=== PATIENT | male | born 1985 | race Caucasian/White ===

== ENCOUNTER 2023-08-23 08:33 | Emergency (ER) | payer BC ==
[2023-08-23 08:54] LABS: Hematocrit 44.2 % (39.6-49.0); Lymphocytes % 34.8 % (15.3-44.8); MCV 91.4 fL (80-100); MPV 7.2 fL (7.6-11.3); Platelets 247 thou/uL (152-406); RBC Red Blood Cell Count 4.83 M/uL (4.33-5.43)
[2023-08-23] MEDS ORDERED: METOCLOPRAMIDE 10 MG/2mL INJ ONE (08:57)
[2023-08-23] MEDS ORDERED: DIPHENHYDRAMINE 50 MG/ML VIAL ONE (08:57)
[2023-08-23] MEDS ORDERED: NA CHLORIDE 0.9% 1,000 ML ONE (08:57)
[2023-08-23] MEDS ORDERED: NA CHLORIDE 0.9% 50 ML ONE (08:58)
[2023-08-23 09:12] LABS: Potassium 4.1 mEq/L (3.5-5.1); Troponin High Sensitivity 5.3 pg/mL (<58.9)
--- NOTE | 2023-08-23 09:47 | RAD REPORT ---
EXAM DESCRIPTION: RAD - Chest Single View - 08/23/2023 9:41 am CLINICAL HISTORY: CHEST PAIN Chest pain. COMPARISON: No comparisons FINDINGS: Portable technique limits examination quality. The lungs are grossly clear. The heart is normal in size. No displaced fractures. IMPRESSION: No acute intrathoracic process suspected.
--- NOTE | 2023-08-23 10:01 | EDPHYS ---
Physician Documentation [facility] Name: Jatin Patrick Age: 38 yrs Sex: Male : 1985 Arrival Date: 08/23/2023 Time: 08:33 Bed 4 Private MD: ED Physician Lior Caceres HPI: 08/23 08:41 This 38 yrs old Male presents to ER via EMS with complaints of dizziness. ec2 08:41 Patient arrives today due to concern for dizziness. Patient reports that he woke up ec2 this morning and suddenly felt very dizzy to the point where he felt lightheaded like he was in a pass out. States that he tried to get out of bed however positional changes in bed worsen his symptoms. Patient reports no previous similar symptoms. Patient reports no medical problems, denies any previous cardiac disease. Patient reports that he felt some palpitations during this time as well. Patient reports some associated nausea with this episode. Patient denies any vomiting. Patient reports no head traumas or injuries. Patient has not taken any medications prior to arrival.. Historical: - Allergies: 08:39 No Known Allergies; rs5 - PMHx: 08:39 None; rs5 - PSHx: 08:39 None; rs5 - Immunization history:: Adult Immunizations unknown. - Social history:: Smoking status: unknown. ROS: 08:41 Constitutional: dizziness ec2 Exam: 08:41 Constitutional: PHYSICAL EXAMINATION: GENERAL: No acute distress HEENT: Extraocular ec2 motions intact CV: Regular rate LUNGS: No respiratory distress ABDOMEN: Nondistended SKIN: No rash NEUROLOGIC: Cranial nerves II through XII intact, strength intact all 4 extremities, appropriate cerebellar function, negative HINTS exam. Vital Signs: 08:37 BP 122 / 80; Pulse 78; Resp 19; Temp 97.9; Pulse Ox 99% on R/A; rs5 09:00 BP 130 / 82; Pulse 74; Resp 17; Temp 98(O); Pulse Ox 99% on R/A; rs5 10:05 BP 125 / 81; Pulse 74; Resp 18; Pulse Ox 99% on R/A; rs5 MDM: 08:35 Patient medically screened. ec2 08:41 Data reviewed: vital signs. ec2 08:43 ED course: Patient arrives today for concern for significant dizziness. Examination ec2 markable. Nontoxic dividual was in no acute distress with reassuring neurologic exam. Will obtain lab work, EKG, chest x-ray as well as treat the patient symptoms with crystalloid, Reglan and Benadryl. Currently presenting process which is peripheral vertigo, lower suspicion for central vertigo, accordingly will defer any CT imaging of the head at this time. Additionally patient was low risk factors to indicate intracranial process such as stroke. We will also evaluate for electrolyte disturbances as well as arrhythmia.. 08:51 ED course: EKG independently reviewed and interpreted by me, shows normal sinus rhythm, ec2 rate 54, no acute ST segment elevations, no concern intervals.. 09:29 ED course: Metabolic profile is reassuring. CBC without leukocytosis or evidence of ec2 anemia. Troponin is within normal ranges. . 09:30 ED course: Chest x-ray independently reviewed and interpreted by me, shows no acute ec2 intrathoracic process.. 09:59 ED course: On reassessment patient reports marked improvement in his symptoms, I ec2 reexamined the patient, he remains with an intact neurologic exam and is now able to sustain positional changes with no recurrence of symptoms. Will discharge home with diagnosis of vertigo, prescribe the patient meclizine. Return precautions given.. 08/23 08:40 Order name: Basic Metabolic Panel; Complete Time: : ec2 08/23 08:40 Order name: CBC with Diff; Complete Time: : ec2 08/23 08:40 Order name: Troponin HS; Complete Time: : ec2 08/23 08:40 Order name: XRAY Chest (1 view); Complete Time: :59 ec2 08/23 08:40 Order name: EKG; Complete Time: 08: ec2 08/23 08:40 Order name: Cardiac monitoring; Complete Time: : ec2 08/23 08:40 Order name: EKG - Nurse/Tech; Complete Time: ec2 08/23 08:40 Order name: IV Saline Lock; Complete Time: ec2 08/23 08:40 Order name: Labs collected and sent; Complete Time: : ec2 08/23 08:40 Order name: O2 Per Protocol; Complete Time: ec2 08/23 08:40 Order name: O2 Sat Monitoring; Complete Time: 08:51 ec2 Administered Medications: 08:43 Drug: NS 0.9% IV 1000 ml IV at 1 bolus Per protocol; 1000 mL bolus Route: IV; Rate: 1 db bolus; Site: left antecubital; 09:00 Follow up: Response: No adverse reaction rs5 08:43 Drug: diphenhydrAMINE IVP 50 mg IVP once Route: IVP; Site: left antecubital; db 09:00 Follow up: Response: No adverse reaction rs5 08:45 Drug: metoCLOPramide IVP 10 mg IVP once; over 1 to 2 minutes Route: IVP; Site: left db antecubital; 09:00 Follow up: Response: No adverse reaction; Nausea is decreased rs5 Disposition Summary: 08/23/23 10:00 Discharge Ordered Notes: Location: Home ec2 Condition: Stable ec2 Diagnosis - Other peripheral vertigo ec2 Discharge Instructions: - Discharge Summary Sheet ec2 - Vertigo, Ztzd-[id number] ec2 Forms: - Work release form eb - Medication Reconciliation Form ec2 - Thank You Letter ec2 - Antibiotic Education ec2 - Prescription Opioid Use ec2 - Patient Portal Instructions ec2 - Leadership Thank You Letter ec2 Prescriptions: - Meclizine 25 mg Oral Tablet - take 1 tablet ORAL route every 8 hours As needed; 30 tablet; Refills: 0, ec2 Product Selection Permitted Signatures: Dispatcher [employer] Mareclina Campbell, RN RN db Deric Greenberg RN RN rs5 Lior Caceres MD MD ec2 Corrections: (The following items were deleted from the chart) 08:41 08:39 Patient medically screened. ec2 ec2
--- NOTE | 2023-08-23 10:01 | ER ---
Nurse's Notes [facility] Name: Jatin Patrick Age: 38 yrs Sex: Male : 1985 Arrival Date: 08/23/2023 Time: 08:33 Bed 4 Private MD: Diagnosis: Other peripheral vertigo Presentation: 08/23 08:37 Chief complaint: EMS states: Pt woke up this morning feeling dizzy, lightheaded, N/V, rs5 palpitations. Coronavirus screen: chills. Ebola Screen: No symptoms or risks identified at this time. Initial Sepsis Screen: Does the patient meet any 2 criteria? No. Patient's initial sepsis screen is negative. Does the patient have a suspected source of infection? No. Patient's initial sepsis screen is negative. Risk Assessment: Do you want to hurt yourself or someone else? Patient reports no desire to harm self or others. Onset of symptoms was August 23, 2023. 08:37 Method Of Arrival: EMS: [facility] rs 08:37 Acuity: HEMANT 3 rs5 Triage Assessment: 08:39 General: Appears in no apparent distress. uncomfortable, Behavior is cooperative, rs5 anxious. Pain: Denies pain. Historical: - Allergies: 08:39 No Known Allergies; rs5 - PMHx: 08:39 None; rs5 - PSHx: 08:39 None; rs5 - Immunization history:: Adult Immunizations unknown. - Social history:: Smoking status: unknown. Screenin:40 [facility] ED Fall Risk Assessment (Adult) History of falling in the last 3 months, rs5 including since admission No falls in past 3 months (0 pts) Confusion or Disorientation No (0 pts) Intoxicated or Sedated No (0 pts) Impaired Gait No (0 pts) Mobility Assist Device Used No (0 pt) Altered Elimination No (0 pt) Score/Fall Risk Level 0 - 2 = Low Risk Oriented to surroundings, Maintained a safe environment. 08:40 Abuse screen: Denies threats or abuse. Nutritional screening: No deficits noted. rs5 Tuberculosis screening: No symptoms or risk factors identified. Assessment: 08:40 General: Appears distressed, uncomfortable, Behavior is cooperative, anxious. Pain: rs5 Denies pain. Neuro: Level of Consciousness is awake, alert, obeys commands, Oriented to person, place, time, situation. Cardiovascular: Denies chest pain, palpitations, Heart tones S1 S2 present Patient's skin is warm and dry. Rhythm is regular. Respiratory: Airway is patent Respiratory effort is even, unlabored, Respiratory pattern is regular, symmetrical, Breath sounds are clear bilaterally. GI: Abdomen is round non-distended, Bowel sounds present X 4 quads. : No signs and/or symptoms were reported regarding the genitourinary system. EENT: No signs and/or symptoms were reported regarding the EENT system. Derm: Skin is intact, Skin is dry, Skin is normal, Skin temperature is warm. Musculoskeletal: Circulation, motion, and sensation intact. Range of motion: intact in all extremities. 09:30 Reassessment: Patient and/or family updated on plan of care and expected duration. Pain rs5 level reassessed. Patient is alert, oriented x 3, equal unlabored respirations, skin warm/dry/pink. Patient states feeling better. Patient states symptoms have improved. 10:05 Reassessment: No changes from previously documented assessment. rs5 Vital Signs: 08:37 BP 122 / 80; Pulse 78; Resp 19; Temp 97.9; Pulse Ox 99% on R/A; rs5 09:00 BP 130 / 82; Pulse 74; Resp 17; Temp 98(O); Pulse Ox 99% on R/A; rs5 10:05 BP 125 / 81; Pulse 74; Resp 18; Pulse Ox 99% on R/A; rs5 ED Course: 08:34 Patient arrived in ED. eb 08:34 Deric Greenberg, JOEY is Primary Nurse. rs5 08:35 Lior Caceres MD is Attending Physician. eb 08:39 Triage completed. rs5 08:40 Patient has correct armband on for positive identification. Placed in gown. Bed in low rs5 position. Call light in reach. Side rails up X2. Adult w/ patient. 08:40 Arm band placed on right wrist. rs5 09:43 XRAY Chest (1 view) In Process Unspecified. EDMS 10:20 No provider procedures requiring assistance completed. rs5 10:20 IV discontinued, intact, bleeding controlled, No redness/swelling at site. Pressure rs5 dressing applied. Administered Medications: 08:43 Drug: NS 0.9% IV 1000 ml IV at 1 bolus Per protocol; 1000 mL bolus Route: IV; Rate: 1 db bolus; Site: left antecubital; 09:00 Follow up: Response: No adverse reaction rs5 08:43 Drug: diphenhydrAMINE IVP 50 mg IVP once Route: IVP; Site: left antecubital; db 09:00 Follow up: Response: No adverse reaction rs5 08:45 Drug: metoCLOPramide IVP 10 mg IVP once; over 1 to 2 minutes Route: IVP; Site: left db antecubital; 09:00 Follow up: Response: No adverse reaction; Nausea is decreased rs5 Medication: 10:20 VIS not applicable for this client. rs5 Outcome: 10:00 Discharge ordered by . ec2 10:20 Discharged to home via wheelchair, with family, rs5 10:20 Condition: stable 10:20 Discharge instructions given to patient, family, Instructed on discharge instructions, follow up and referral plans. medication usage, Demonstrated understanding of instructions, follow-up care, medications, Prescriptions given X 2, 10:25 Patient left the ED. rs5 Signatures: Dispatcher [employer] EDShaista Live Danielle, RN RN db Deric Greenberg RN RN rs5 Lior Caceres MD MD ec2
[2023-08-23 10:30] VITALS: BP 122/80; TEMP 97.9; O2SAT 99
--- NOTE | 2023-08-24 17:05 | EKG ---
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
== END 2023-08-23 10:25 | disposition home or self-care (01) ==
LOC: ER 08:33
DX: H81.399 Other peripheral vertigo, unspecified ear (principal)
CPT/HCPCS: 93005; 85025; 80048; 36415; 84484; 71045; 96375; 96374; 99284; J2765; J1200; J7030